=== PATIENT | female | born 1960 | race African-American/Black ===

== ENCOUNTER 2022-02-26 12:31 | Emergency (ER) | payer OTHER ==
[~2022-02-26] VITALS: Ht 167.6 cm; Wt 105.7 kg
[~2022-02-26 12:31] MED LIST: AMLO10TA88 PO; CEPH-588 PO; CLON1TAB1 PO; DULO30EC PO; ENAL-197 PO; INSU100V6 SQ; INSU300S SUBQ; METF-346 PO; ROSU10TA34 PO; SEMA0.25 SUBQ; SODI100076 PO; [UNRECOGNIZED DRUG - CODE] PO
[2022-02-26 12:41] VITALS: BP 135/67
[2022-02-26 13:31] LABS: BASOPHILS % (AUTO) 1.1 % (0.0-2.0); EOSINOPHILS # (AUTO) 0.1 K/uL (0-0.4); EOSINOPHILS % (AUTO) 3.5 % (0.0-4.0); HEMATOCRIT 33.2 % (36-48); HEMOGLOBIN 11.1 g/dL (12.0-16.0); LYMPHOCYTES # (AUTO) 1.2 K/uL (2.5-16.5); LYMPHOCYTES % (AUTO) 29.6 % (20.5-51.1); MEAN CORPUSCULAR HEMOGLOBIN 27 pg (27-31); MEAN CORPUSCULAR HGB CONC 34 g/dL (33-37); MEAN CORPUSCULAR VOLUME 79.7 fL (80-94); MONOCYTES # (AUTO) 0.3 K/uL (0.8-1.0); MONOCYTES % (AUTO) 7.2 % (1.7-9.3); NEUTROPHILS # (AUTO) 2.3 K/uL (1.8-7.7); NEUTROPHILS % (AUTO) 58.6 % (42.2-75.2); PLATELET COUNT (AUTO) 555 K/uL (140-450); RED BLOOD CELL COUNT(AUTO) 4.16 MIL/uL (4.20-5.40); RED CELL DISTRIBUTION WIDTH 13.2 % (11.6-13.7); WHITE BLOOD COUNT (AUTO) 3.9 K/uL (4.8-10.8)
[2022-02-26 13:48] LABS: ALBUMIN 3.2 g/dL (3.4-5.0); ANION GAP 10.8 (8-16); ASPARTATE AMINOTRANSFERASE 14 U/L (15-37); CARBON DIOXIDE 29.9 mmol/L (21-32); CHLORIDE 96 mmol/L (98-107); GFR ARICAN-AMERICAN 72 mL/min (>90); GLUCOSE 155 mg/dL (74-106); POTASSIUM 4.7 mmol/L (3.5-5.1); SODIUM SERUM 132 mmol/L (136-145); TOTAL BILIRUBIN 0.4 mg/dL (0.0-1.0); UREA NITROGEN, BLOOD 10 mg/dL (7-18)
[2022-02-26] MEDS ORDERED: ONDANSETRON 4 MG/2 ML VIAL IVP ONE (14:10)
[2022-02-26] MEDS ORDERED: NACL 0.9% 1,000 ML IV ONE (14:10)
[2022-02-26 14:37] LABS: APPEARANCE,URINE CLEAR (CLEAR); BILIRUBIN,URINE NEGATIVE (NEGATIVE); BLOOD, URINE NEGATIVE (NEGATIVE); LEUKOCYTE ESTERASE ,URINE NEGATIVE (NEGATIVE); NITRITE, URINE NEGATIVE (NEGATIVE); PH,URINE 5.5 (5.0-9.0); UGLUCOSE NEGATIVE (NEGATIVE)
[2022-02-26 14:38] LABS: COLOR,URINE STRAW (YELLOW)
[2022-02-26 16:50] VITALS: BP 121/58
== END 2022-02-26 16:50 | disposition home or self-care (01) ==
LOC: MED 12:31
DX: D72.819 Decreased white blood cell count, unspecified (principal); D64.9 Anemia, unspecified; R53.1 Weakness; Z20.822 Contact with and (suspected) exposure to COVID-19; R09.81 Nasal congestion; R05.9 Cough, unspecified; E11.9 Type 2 diabetes mellitus without complications; I10 Essential (primary) hypertension; Z98.890 Other specified postprocedural states; Z79.899 Other long term (current) drug therapy; Z79.2 Long term (current) use of antibiotics; Z79.4 Long term (current) use of insulin; Z88.2 Allergy status to sulfonamides; Z88.8 Allergy status to other drugs, medicaments and biological substances; Z91.040 Latex allergy status; Z88.1 Allergy status to other antibiotic agents
CPT/HCPCS: 36415; 71045; 80053; 81003; 84484; 85025; 87086; 87426; 93005; 96361; 96374; 99285; J2405; J7030; Q0092

== ENCOUNTER 2022-03-06 20:41 | Emergency (ER) | payer OTHER ==
[~2022-03-06] VITALS: Ht 167.6 cm; Wt 107.0 kg
[2022-03-06 21:08] VITALS: BP 123/53
[2022-03-06 21:30] LABS: BASOPHILS % (AUTO) 0.1 % (0.0-2.0); EOSINOPHILS # (AUTO) 0.2 K/uL (0-0.4); EOSINOPHILS % (AUTO) 3.5 % (0.0-4.0); HEMATOCRIT 35.1 % (36-48); LYMPHOCYTES # (AUTO) 2.3 K/uL (2.5-16.5); LYMPHOCYTES % (AUTO) 48.7 % (20.5-51.1); MEAN CORPUSCULAR HEMOGLOBIN 27 pg (27-31); MEAN CORPUSCULAR HGB CONC 34 g/dL (33-37); MEAN CORPUSCULAR VOLUME 79.7 fL (80-94); MONOCYTES # (AUTO) 0.5 K/uL (0.8-1.0); NEUTROPHILS # (AUTO) 1.8 K/uL (1.8-7.7); NEUTROPHILS % (AUTO) 37.7 % (42.2-75.2); PLATELET COUNT (AUTO) 556 K/uL (140-450); RED BLOOD CELL COUNT(AUTO) 4.41 MIL/uL (4.20-5.40); RED CELL DISTRIBUTION WIDTH 12.8 % (11.6-13.7); WHITE BLOOD COUNT (AUTO) 4.8 K/uL (4.8-10.8)
[2022-03-06 21:32] LABS: APPEARANCE,URINE CLEAR (CLEAR); BILIRUBIN,URINE NEGATIVE (NEGATIVE); BLOOD, URINE NEGATIVE (NEGATIVE); COLOR,URINE YELLOW (YELLOW); LEUKOCYTE ESTERASE ,URINE NEGATIVE (NEGATIVE); NITRITE, URINE NEGATIVE (NEGATIVE); UGLUCOSE NEGATIVE (NEGATIVE)
[2022-03-06 22:17] LABS: ALBUMIN 3.8 g/dL (3.4-5.0); ANION GAP 10.9 (8-16); CARBON DIOXIDE 30.1 mmol/L (21-32); TOTAL BILIRUBIN 0.2 mg/dL (0.0-1.0)
[2022-03-06] MEDS ORDERED: MECL-303 PO (23:55)
[2022-03-07 00:17] VITALS: BP 108/51
== END 2022-03-07 00:17 | disposition home or self-care (01) ==
LOC: MED 20:41
DX: R42 Dizziness and giddiness (principal); Z20.822 Contact with and (suspected) exposure to COVID-19; E11.9 Type 2 diabetes mellitus without complications; I10 Essential (primary) hypertension; Z98.890 Other specified postprocedural states; Z79.899 Other long term (current) drug therapy; Z79.2 Long term (current) use of antibiotics; Z79.4 Long term (current) use of insulin; Z88.2 Allergy status to sulfonamides; Z88.8 Allergy status to other drugs, medicaments and biological substances; Z91.040 Latex allergy status; Z88.1 Allergy status to other antibiotic agents
CPT/HCPCS: 36415; 71045; 80053; 81003; 83605; 83880; 84484; 85025; 87040; 87086; 87426; 93005; 99285; Q0092

== ENCOUNTER 2022-03-14 19:50 | Emergency (ER) | payer OTHER ==
[~2022-03-14] VITALS: Ht 167.6 cm; Wt 103.9 kg
[~2022-03-14 19:50] MED LIST changes: +MECL-303 PO
[2022-03-14 21:04] VITALS: BP 140/79
--- NOTE | 2022-03-14 21:09 | NUR ---
TO LOBBY FOLLOWING TRIAGE
--- NOTE | 2022-03-14 23:30 | NUR ---
CALLED PT FOR MD PENA, NO ANSWER
[2022-03-14] MEDS ORDERED: PROCHLORPERAZINE 10 MG/2 ML VIAL IVP ONE (23:35)
[2022-03-14] MEDS ORDERED: MORPHINE SULFATE 2 MG/ML SYR IVP ONE (23:35)
[2022-03-14] MEDS ORDERED: NACL 0.9% 1,000 ML IV ONE (23:35)
--- NOTE | 2022-03-14 23:54 | NUR ---
CALLED FOR MD PENA. PT WAS ALSO CALLED EARLIER FOR CT, NO ANSWER. PT LWBS
== END 2022-03-14 23:54 | disposition left against medical advice (07) ==
LOC: MED 19:50
DX: R51.9 Headache, unspecified (principal); I10 Essential (primary) hypertension; E11.9 Type 2 diabetes mellitus without complications; Z79.4 Long term (current) use of insulin; Z79.899 Other long term (current) drug therapy; Z88.2 Allergy status to sulfonamides; Z88.8 Allergy status to other drugs, medicaments and biological substances; Z91.040 Latex allergy status; Z53.21 Procedure and treatment not carried out due to patient leaving prior to being seen by health care provider

== ENCOUNTER 2022-10-03 10:47 | Emergency (ER) | payer OTHER ==
[~2022-10-03] VITALS: Ht 167.6 cm; Wt 108.4 kg
[2022-10-03 10:55] VITALS: BP 122/67
--- NOTE | 2022-10-03 11:00 | NUR ---
62/f walked in c/o dizziness x 1 wk. denies nvd. denies loc or fall. vss, aao4, ambulatory. PMH: HX CRANIOTOMY 2022, DM, HTN, HDL, GASTROPARESIS
[2022-10-03] MEDS ORDERED: NACL 0.9% 1,000 ML IV ONE (12:10)
[2022-10-03 12:45] LABS: BASOPHILS % (AUTO) 0.8 % (0.0-2.0); EOSINOPHILS # (AUTO) 0.2 K/uL (0-0.4); EOSINOPHILS % (AUTO) 3.4 % (0.0-4.0); HEMOGLOBIN 12.4 g/dL (12.0-16.0); LYMPHOCYTES % (AUTO) 34.9 % (20.5-51.1); MEAN CORPUSCULAR HEMOGLOBIN 27 pg (27-31); MEAN CORPUSCULAR HGB CONC 34 g/dL (33-37); MEAN CORPUSCULAR VOLUME 81.6 fL (80-94); MONOCYTES # (AUTO) 0.5 K/uL (0.8-1.0); MONOCYTES % (AUTO) 9.3 % (1.7-9.3); NEUTROPHILS # (AUTO) 2.9 K/uL (1.8-7.7); NEUTROPHILS % (AUTO) 51.6 % (42.2-75.2); PLATELET COUNT (AUTO) 426 K/uL (140-450); RED BLOOD CELL COUNT(AUTO) 4.53 MIL/uL (4.20-5.40); RED CELL DISTRIBUTION WIDTH 12.3 % (11.6-13.7); WHITE BLOOD COUNT (AUTO) 5.6 K/uL (4.8-10.8)
[2022-10-03 13:58] LABS: ALBUMIN 3.8 g/dL (3.4-5.0); ANION GAP 12.9 (8-16); ASPARTATE AMINOTRANSFERASE 18 U/L (15-37); CARBON DIOXIDE 28.8 mmol/L (21-32); CHLORIDE 99 mmol/L (98-107); CREATININE 1.1 mg/dL (0.6-1.3); GFR ARICAN-AMERICAN 64 mL/min (>90); GLUCOSE 82 mg/dL (74-106); MAGNESIUM 1.7 mg/dL (1.8-2.4); POTASSIUM 3.7 mmol/L (3.5-5.1); SODIUM SERUM 137 mmol/L (136-145); TOTAL BILIRUBIN 0.2 mg/dL (0.0-1.0); UREA NITROGEN, BLOOD 18 mg/dL (7-18)
[2022-10-03 14:02] LABS: APPEARANCE,URINE CLEAR (CLEAR); BILIRUBIN,URINE NEGATIVE (NEGATIVE); BLOOD, URINE NEGATIVE (NEGATIVE); COLOR,URINE YELLOW (YELLOW); LEUKOCYTE ESTERASE ,URINE NEGATIVE (NEGATIVE); NITRITE, URINE NEGATIVE (NEGATIVE); UGLUCOSE 2+ (NEGATIVE)
[2022-10-03] MEDS ORDERED: MAGNESIUM OXIDE 400 MG TAB PO ONE (14:20)
[2022-10-03 14:30] VITALS: BP 119/75
== END 2022-10-03 14:30 | disposition home or self-care (01) ==
LOC: MED 10:47
DX: R42 Dizziness and giddiness (principal); E11.9 Type 2 diabetes mellitus without complications; I10 Essential (primary) hypertension; Z88.2 Allergy status to sulfonamides; Z88.8 Allergy status to other drugs, medicaments and biological substances; Z79.4 Long term (current) use of insulin; Z79.899 Other long term (current) drug therapy; Z91.040 Latex allergy status; Z98.890 Other specified postprocedural states
CPT/HCPCS: 36415; 80053; 81003; 83735; 84484; 85025; 93005; 96360; 99284; J7030

== ENCOUNTER 2022-12-10 02:13 | Emergency (ER) | payer OTHER ==
[~2022-12-10] VITALS: Ht 167.6 cm; Wt 107.5 kg
[2022-12-10 02:21] VITALS: BP 142/71
--- NOTE | 2022-12-10 02:46 | NUR ---
PT TO BED #7
--- NOTE | 2022-12-10 02:48 | NUR ---
RECEIVED IN BED 7 WITH C/O COUGH AND CONGESTION, DENIES ANY N/V/D, NO FEVER OR CHILLS.
--- NOTE | 2022-12-10 03:24 | NUR ---
DR DUEÑAS AT BEDSIDE FOR EXAM
[2022-12-10] MEDS ORDERED: ALBUTEROL SULFATE/IPRATROPIU 3 ML SOL IH ONE ×2 (03:40→03:46)
[2022-12-10] MEDS ORDERED: predniSONE 20 MG TAB PO ONE (03:40)
[2022-12-10] MEDS ORDERED: ALBUTEROL HFA MDI 90 MCG/ACTUATION 8 GM INH ONE (03:40)
[2022-12-10] MEDS ORDERED: predniSONE 20 MG TAB ONE (03:42)
--- NOTE | 2022-12-10 03:47 | NUR ---
RESPIRATORY AT BEDSIDE FOR MED NEB TX
[2022-12-10] MEDS ORDERED: PRED20TA5 PO (05:12)
[2022-12-10] MEDS ORDERED: ALBU0.0912 IH (05:12)
[2022-12-10] MEDS ORDERED: ROBAC PO (05:12)
[2022-12-10 05:45] VITALS: BP 142/71
--- NOTE | 2022-12-10 05:45 | NUR ---
Patient discharged with v/s stable. Written and verbal after care instructions given and explained. Patient alert, oriented and verbalized understanding of instructions. Ambulatory with steady gait. All questions addressed prior to discharge. ID band removed. Patient advised to follow up with PMD. Rx of PROVENTIL HFA, PREDNISONE, GUAIFENESIN-CODEINE SYRUP given. Patient educated on indication of medication including possible reaction and side effects. Opportunity to ask questions provided and answered.
== END 2022-12-10 05:50 | disposition home or self-care (01) ==
LOC: MED 02:13
DX: J20.9 Acute bronchitis, unspecified (principal); Z20.822 Contact with and (suspected) exposure to COVID-19; I10 Essential (primary) hypertension; E11.9 Type 2 diabetes mellitus without complications; Z88.2 Allergy status to sulfonamides; Z91.040 Latex allergy status; Z88.8 Allergy status to other drugs, medicaments and biological substances; Z79.899 Other long term (current) drug therapy; Z79.4 Long term (current) use of insulin; Z98.890 Other specified postprocedural states
CPT/HCPCS: 71045; 87420; 87426; 87804; 94640; 99284; J7512; Q0092

== ENCOUNTER 2022-12-12 11:31 | Inpatient (IN) | payer OTHER ==
[~2022-12-12] VITALS: Ht 167.6 cm; Wt 108.9 kg
[~2022-12-12 11:31] MED LIST changes: +ALBU0.0912 IH; +PRED20TA5 PO; +ROBAC PO
[2022-12-12 11:56] VITALS: BP 143/109; PULSE 97; RESP 16; TEMP 98.4; O2SAT 98
--- NOTE | 2022-12-12 12:24 | NUR ---
PT W/C ASSISTED TO BED 1
[2022-12-12 12:30] VITALS: O2SAT 98
--- NOTE | 2022-12-12 12:30 | NUR ---
62YO FEMALE PT BIB FRIEND C/O MEDICATION INTERACTION. PT GIVEN RX TYLENOL W/CODEINE FOR RECENT DX BRONCHITIS AND STATES "FEELING HEAD FUZZY" AFTER TAKING RX. DENIES HALLUCINATIONS, CHEST PAIN, SOB, FEVER, CHILLS OR RASH.PT AAOX4, SPEAKING IN CLEAR FULL SENTANCES. RESPIRATIONS EVEN AND UNLABORED. W/C ASSISTED TO ROOM. ON BEVERAGE SALES CONSULTANT. HX: HTN, HLD, ASTHMA, SPINAL STENOSIS, SCIATICA ALLERGIES: SOMMA, SULFA, AVELOX, LATEX
--- NOTE | 2022-12-12 12:34 | NUR ---
MD ALONZO AT BEDSIDE FOR EVALUATION
[2022-12-12] MEDS ORDERED: LORazepam 1 MG TAB PO ONE (12:45)
[2022-12-12 13:19] LABS: BASOPHILS % (AUTO) 0.6 % (0.0-2.0); EOSINOPHILS # (AUTO) 0.1 K/uL (0-0.4); EOSINOPHILS % (AUTO) 1.8 % (0.0-4.0); HEMATOCRIT 36.2 % (36-48); HEMOGLOBIN 12.2 g/dL (12.0-16.0); LYMPHOCYTES # (AUTO) 2.2 K/uL (2.5-16.5); LYMPHOCYTES % (AUTO) 32.4 % (20.5-51.1); MEAN CORPUSCULAR HEMOGLOBIN 27 pg (27-31); MEAN CORPUSCULAR HGB CONC 34 g/dL (33-37); MEAN CORPUSCULAR VOLUME 80.4 fL (80-94); MONOCYTES # (AUTO) 0.5 K/uL (0.8-1.0); MONOCYTES % (AUTO) 7.4 % (1.7-9.3); NEUTROPHILS # (AUTO) 3.9 K/uL (1.8-7.7); NEUTROPHILS % (AUTO) 57.8 % (42.2-75.2); PLATELET COUNT (AUTO) 411 K/uL (140-450); RED BLOOD CELL COUNT(AUTO) 4.51 MIL/uL (4.20-5.40); RED CELL DISTRIBUTION WIDTH 12.6 % (11.6-13.7); WHITE BLOOD COUNT (AUTO) 6.7 K/uL (4.8-10.8)
[2022-12-12 13:35] LABS: ALBUMIN 3.6 g/dL (3.4-5.0); ANION GAP 13.5 (8-16); ASPARTATE AMINOTRANSFERASE 17 U/L (15-37); CARBON DIOXIDE 26.7 mmol/L (21-32); CHLORIDE 89 mmol/L (98-107); CREATININE 1.1 mg/dL (0.6-1.3); GFR ARICAN-AMERICAN 64 mL/min (>90); GLUCOSE 236 mg/dL (74-106); POTASSIUM 4.2 mmol/L (3.5-5.1); SODIUM SERUM 125 mmol/L (136-145); TOTAL BILIRUBIN 0.4 mg/dL (0.0-1.0); UREA NITROGEN, BLOOD 11 mg/dL (7-18)
[2022-12-12] MEDS ORDERED: LORazepam 1 MG TAB ONE (13:47)
[2022-12-12] MEDS ORDERED: NACL 0.9% 1,000 ML IV ONE (13:50)
--- NOTE | 2022-12-12 15:00 | NUR ---
The patient's care was reviewed and supervised by Dix 04 ED, RN.
[2022-12-12] MEDS ORDERED: MAGNESIUM OXIDE 400 MG TAB PO PRN (15:05)
[2022-12-12] MEDS ORDERED: ONDANSETRON 4 MG/2 ML VIAL IVP PRN (15:05)
[2022-12-12] MEDS ORDERED: HYDROcodone/APAP 5/325 MG 1 TAB TAB PO PRN (15:05)
[2022-12-12] MEDS ORDERED: KCL 20 MEQ IN 100 mL PREMIX 200 ML IV PRN (15:05)
[2022-12-12] MEDS ORDERED: ACETAMINOPHEN 325 MG TAB PO PRN (15:05)
[2022-12-12] MEDS ORDERED: MAG SULF 2000 MG/WATER PREMIX 50 ML IV PRN (15:05)
[2022-12-12] MEDS ORDERED: POTASSIUM CHLORIDE 10 MEQ TABER PO PRN (15:05)
[2022-12-12] MEDS ORDERED: MORPHINE SULFATE 2 MG/ML SYR IVP PRN (15:05)
[2022-12-12] MEDS ORDERED: NACL 0.9% 1,000 ML IV SCH (15:05)
[2022-12-12 16:35] VITALS: O2SAT 100
--- NOTE | 2022-12-12 17:48 | NUR ---
pt provided w/ dinner. pt awake, repositioned and eating in bed
[2022-12-12 18:14] LABS: CARBON DIOXIDE 29.1 mmol/L (21-32); POTASSIUM 4.1 mmol/L (3.5-5.1)
--- NOTE | 2022-12-12 19:18 | NUR ---
REPORT GIVEN TO ROSY FREY. TRANSFER OF CARE AT THIS TIME
--- NOTE | 2022-12-12 19:31 | NUR ---
PATIENT RESTING IN BED, A/OX4, CHEST RISE AND FALL SYMMETRICAL, NO C/O PAIN OR S/S OF DISTRESS, ON MONITOR.
--- NOTE | 2022-12-12 21:00 | NUR ---
PATIENT RESTING IN BED, A/OX4, CHEST RISE AND FALL SYMMETRICAL, NO C/O PAIN OR S/S OF DISTRESS, ON MONITOR.
[2022-12-12 21:20] LABS: ANION GAP 10.7 (8-16); CARBON DIOXIDE 27.4 mmol/L (21-32); CREATININE 0.9 mg/dL (0.6-1.3); POTASSIUM 4.1 mmol/L (3.5-5.1)
[2022-12-12] MEDS ORDERED: MECLIZINE 25 MG TAB PO PRN (23:00)
[2022-12-12] MEDS ORDERED: ALBUTEROL HFA MDI 90 MCG/ACTUATION 8 GM INH PRN (23:00)
[2022-12-12] MEDS ORDERED: DEXTROSE 50% 50 ML SYR IVP PRN (23:00)
--- NOTE | 2022-12-12 23:20 | NUR ---
PATIENT RESTING IN BED, A/OX4, CHEST RISE AND FALL SYMMETRICAL, NO C/O PAIN OR S/S OF DISTRESS, ON MONITOR.
[2022-12-13] MEDS: BLOOD GLUCOSE MONITORING 1 DEV DEV FS SCH ×2 (00:12→11:40)
[2022-12-13] MEDS: INSULIN LISPRO SLIDING SCALE 100 UNITS/ML VIAL SUBQ PRN ×2 (00:16→11:43)
--- NOTE | 2022-12-13 01:20 | NUR ---
PATIENT RESTING IN BED, A/OX4, CHEST RISE AND FALL SYMMETRICAL, NO C/O PAIN OR S/S OF DISTRESS, ON MONITOR.
--- NOTE | 2022-12-13 04:00 | NUR ---
PATIENT RESTING IN BED, A/OX4, CHEST RISE AND FALL SYMMETRICAL, NO C/O PAIN OR S/S OF DISTRESS, ON MONITOR.
[2022-12-13] MEDS: clonazePAM 0.5 MG TAB PO PRN ×2 (05:34→05:36)
[2022-12-13] MEDS ORDERED: ALBUTEROL 0.083% 2.5 MG/3 ML NEBU INH PRN (07:10)
--- NOTE | 2022-12-13 07:24 | NUR ---
Pt report given to NINO. Transfer of care at this time.
[2022-12-13 07:47] LABS: BASOPHILS # (AUTO) 0.1 K/uL (0.00-0.22); BASOPHILS % (AUTO) 1.3 % (0.0-2.0); EOSINOPHILS # (AUTO) 0.1 K/uL (0-0.4); HEMATOCRIT 37.9 % (36-48); HEMOGLOBIN 12.7 g/dL (12.0-16.0); LYMPHOCYTES # (AUTO) 1.8 K/uL (2.5-16.5); LYMPHOCYTES % (AUTO) 30.8 % (20.5-51.1); MEAN CORPUSCULAR HEMOGLOBIN 27 pg (27-31); MEAN CORPUSCULAR HGB CONC 34 g/dL (33-37); MEAN CORPUSCULAR VOLUME 81.3 fL (80-94); MONOCYTES # (AUTO) 0.7 K/uL (0.8-1.0); MONOCYTES % (AUTO) 11.1 % (1.7-9.3); NEUTROPHILS # (AUTO) 3.3 K/uL (1.8-7.7); NEUTROPHILS % (AUTO) 54.8 % (42.2-75.2); PLATELET COUNT (AUTO) 421 K/uL (140-450); RED BLOOD CELL COUNT(AUTO) 4.66 MIL/uL (4.20-5.40); RED CELL DISTRIBUTION WIDTH 12.5 % (11.6-13.7)
[2022-12-13 07:59] LABS: CHOL/HDL RATIO 1.9 (1-4.5)
--- NOTE | 2022-12-13 08:00 | NUR ---
Patient will be admitted to care of GENET PAULSON. Admitted to TELEMETRY. Will go to room 107A. Belongings list completed. Report to LALITO FREY.
[2022-12-13 08:03] LABS: ALBUMIN 3.4 g/dL (3.4-5.0); ANION GAP 10.3 (8-16); CARBON DIOXIDE 27.6 mmol/L (21-32); CREATININE 0.9 mg/dL (0.6-1.3); MAGNESIUM 1.9 mg/dL (1.8-2.4); POTASSIUM 3.9 mmol/L (3.5-5.1); TOTAL BILIRUBIN 0.4 mg/dL (0.0-1.0)
[2022-12-13 08:05] VITALS: BP 125/63; PULSE 87; PULSE 99; RESP 18; TEMP 96.6; O2SAT 95
[2022-12-13 08:10] VITALS: PULSE 99; RESP 18; O2SAT 96
--- NOTE | 2022-12-13 08:10 | NUR ---
RECEIVED REPORT FROM ER NURSE FOR CONTINUITY OF CARE. PT STABLE UPON TRANSFER WITH NO SIGNS OF DISTRESS. PT IS A&OX4, ROOM AIR, CCHO DIET, SKIN INTACT, AND AMBULATES WITH ASSIST. PT HAS A 20G IV IN HER L HAND THAT IS PATENT AND SALINE LOCKED. ALL SAFETY MEASURERS IN WITH IN REACH INCLUDING CALL LIGHT WITH REACH. WILL CONTINUE MONITORING.
--- NOTE | 2022-12-13 08:46 | NUR ---
PATIENT HAS BEEN SCREENED AND CATEGORIZED LOW NUTRITION RISK. PATIENT WILL BE SEEN WITHIN 7 DAYS OF ADMISSION. 12/19/[address]
[2022-12-13] MEDS ORDERED: ENOXAPARIN 40 MG/0.4 ML SYR SUBQ SCH (09:00)
[2022-12-13] MEDS ORDERED: amLODIPine 5 MG TAB PO SCH (09:00)
[2022-12-13] MEDS ORDERED: ATORVASTATIN 20 MG TAB PO SCH (09:00)
[2022-12-13] MEDS ORDERED: ROSUVASTATIN CALCIUM 5 MG PO SCH (09:00)
[2022-12-13] MEDS ORDERED: ENALAPRIL 10 MG TAB PO SCH (09:00)
[2022-12-13 12:00] VITALS: BP 122/68; PULSE 100; PULSE 95; RESP 18; TEMP 97.1; O2SAT 98
[2022-12-13 15:00] VITALS: BP 122/68; PULSE 100; RESP 18; TEMP 97.1
--- NOTE | 2022-12-14 13:51 | NUR ---
CALLED DR JAYY MARI'S OFFICE LOCATED AT [address] [address]. SPOKE WITH ELVIS WHO WAS ABLE HELP ME SCHEDULE A FOLLOW UP APPOINTMENT FOR 12/22/2022 AT 0900. CALLED PATIENT TO INFORM HER OF THE ABOVE INFORMATION.
== END 2022-12-13 15:30 | disposition home or self-care (01) | DRG 640 ==
LOC: MED 11:31 → MTU 15:09
PROVIDERS: ADMIT Internal Medicine; ATTEND Internal Medicine
DX: E87.1 Hypo-osmolality and hyponatremia (principal); G93.41 Metabolic encephalopathy; N17.9 Acute kidney failure, unspecified; T43.225A Adverse effect of selective serotonin reuptake inhibitors, initial encounter; I10 Essential (primary) hypertension; E78.5 Hyperlipidemia, unspecified; J06.9 Acute upper respiratory infection, unspecified; F41.9 Anxiety disorder, unspecified; Z20.822 Contact with and (suspected) exposure to COVID-19; E11.21 Type 2 diabetes mellitus with diabetic nephropathy; E86.0 Dehydration; Z88.8 Allergy status to other drugs, medicaments and biological substances; Z88.1 Allergy status to other antibiotic agents; Z88.2 Allergy status to sulfonamides; Z91.040 Latex allergy status; Z79.899 Other long term (current) drug therapy; Z79.4 Long term (current) use of insulin; Z85.841 Personal history of malignant neoplasm of brain; Y92.89 Other specified places as the place of occurrence of the external cause
CPT/HCPCS: 36415; 80048; 80053; 82948; 83036; 83735; 84484; 85025; 87081; 96360; 97116; 99285; J1650; J1815

== ENCOUNTER 2023-03-19 14:06 | Emergency (ER) | payer OTHER ==
[~2023-03-19] VITALS: Ht 167.6 cm; Wt 81.6 kg
[~2023-03-19 14:06] MED LIST changes: -CEPH-588 PO; +INSU100V11 SQ; -INSU100V6 SQ; -ROBAC PO; -SEMA0.25 SUBQ; -SODI100076 PO
[2023-03-19 14:37] VITALS: BP 136/66; PULSE 84; RESP 18; TEMP 97.6; O2SAT 98
[2023-03-19] MEDS ORDERED: NACL 0.9% 1,000 ML IV ONE (14:55)
[2023-03-19] MEDS ORDERED: ONDANSETRON 4 MG/2 ML VIAL IVP ONE (14:55)
[2023-03-19 15:07] LABS: BASOPHILS # (AUTO) 0.1 K/uL (0.00-0.22); BASOPHILS % (AUTO) 1.1 % (0.0-2.0); EOSINOPHILS # (AUTO) 0.1 K/uL (0-0.4); EOSINOPHILS % (AUTO) 1.8 % (0.0-4.0); HEMATOCRIT 36.6 % (36-48); HEMOGLOBIN 12.3 g/dL (12.0-16.0); LYMPHOCYTES # (AUTO) 1.5 K/uL (2.5-16.5); MEAN CORPUSCULAR HEMOGLOBIN 28 pg (27-31); MEAN CORPUSCULAR HGB CONC 34 g/dL (33-37); MONOCYTES # (AUTO) 0.4 K/uL (0.8-1.0); MONOCYTES % (AUTO) 6.7 % (1.7-9.3); NEUTROPHILS # (AUTO) 4.3 K/uL (1.8-7.7); NEUTROPHILS % (AUTO) 66.4 % (42.2-75.2); PLATELET COUNT (AUTO) 388 K/uL (140-450); RED BLOOD CELL COUNT(AUTO) 4.46 MIL/uL (4.20-5.40); RED CELL DISTRIBUTION WIDTH 12.6 % (11.6-13.7); WHITE BLOOD COUNT (AUTO) 6.5 K/uL (4.8-10.8)
[2023-03-19 15:14] LABS: APPEARANCE,URINE CLEAR (CLEAR); BILIRUBIN,URINE NEGATIVE (NEGATIVE); BLOOD, URINE NEGATIVE (NEGATIVE); COLOR,URINE YELLOW (YELLOW); LEUKOCYTE ESTERASE ,URINE NEGATIVE (NEGATIVE); NITRITE, URINE NEGATIVE (NEGATIVE); PROTEIN,URINE NEGATIVE (NEGATIVE); UGLUCOSE 2+ (NEGATIVE); UROBILINOGEN,URINE 0.2 EU/dL (0.2 - 1)
[2023-03-19 15:32] LABS: ALANINE AMINOTRANSFERASE 24 U/L (12-78); ALBUMIN 3.5 g/dL (3.4-5.0); ALKALINE PHOSPHATASE 110 U/L (50-136); ANION GAP 9.9 (8-16); ASPARTATE AMINOTRANSFERASE 15 U/L (15-37); CALCIUM 9.3 mg/dL (8.5-10.1); CARBON DIOXIDE 28.2 mmol/L (21-32); CHLORIDE 96 mmol/L (98-107); CREATININE 1.1 mg/dL (0.6-1.3); GFR ARICAN-AMERICAN 64 mL/min (>90); GFR NON ARICAN-AMERICAN 53 mL/min (>90); GLUCOSE 250 mg/dL (74-106); POTASSIUM 4.1 mmol/L (3.5-5.1); SODIUM SERUM 130 mmol/L (136-145); TOTAL BILIRUBIN 0.3 mg/dL (0.0-1.0); TOTAL PROTEIN, SERUM 7.6 g/dL (6.4-8.2); UREA NITROGEN, BLOOD 14 mg/dL (7-18)
[2023-03-19] MEDS ORDERED: MECL-303 PO (16:00)
[2023-03-19 16:41] VITALS: BP 115/62; PULSE 74; RESP 16; TEMP 98.4; O2SAT 99
== END 2023-03-19 16:41 | disposition home or self-care (01) ==
LOC: MED 14:06
DX: R42 Dizziness and giddiness (principal); J45.909 Unspecified asthma, uncomplicated; E11.9 Type 2 diabetes mellitus without complications; I10 Essential (primary) hypertension; Z88.1 Allergy status to other antibiotic agents; Z88.2 Allergy status to sulfonamides; Z88.8 Allergy status to other drugs, medicaments and biological substances; Z91.040 Latex allergy status; Z79.899 Other long term (current) drug therapy
CPT/HCPCS: 36415; 80053; 81003; 84484; 85025; 93005; 96361; 96374; 99284; J2405; J7030

== ENCOUNTER 2023-04-25 15:14 | Emergency (ER) | payer OTHER ==
[~2023-04-25] VITALS: Ht 167.6 cm; Wt 109.3 kg
[2023-04-25 15:36] VITALS: BP 132/69; PULSE 98; RESP 20; TEMP 97.8; O2SAT 98
[2023-04-25 17:04] LABS: BASOPHILS % (AUTO) 0.7 % (0.0-2.0); EOSINOPHILS # (AUTO) 0.1 K/uL (0-0.4); EOSINOPHILS % (AUTO) 2.6 % (0.0-4.0); HEMATOCRIT 37.6 % (36-48); HEMOGLOBIN 12.5 g/dL (12.0-16.0); LYMPHOCYTES # (AUTO) 1.3 K/uL (2.5-16.5); LYMPHOCYTES % (AUTO) 26.5 % (20.5-51.1); MEAN CORPUSCULAR HEMOGLOBIN 27 pg (27-31); MEAN CORPUSCULAR HGB CONC 33 g/dL (33-37); MEAN CORPUSCULAR VOLUME 82.5 fL (80-94); MONOCYTES # (AUTO) 0.3 K/uL (0.8-1.0); MONOCYTES % (AUTO) 6.9 % (1.7-9.3); NEUTROPHILS # (AUTO) 3.2 K/uL (1.8-7.7); NEUTROPHILS % (AUTO) 63.3 % (42.2-75.2); PLATELET COUNT (AUTO) 377 K/uL (140-450); RED BLOOD CELL COUNT(AUTO) 4.56 MIL/uL (4.20-5.40); RED CELL DISTRIBUTION WIDTH 12.7 % (11.6-13.7)
[2023-04-25 17:18] LABS: ALBUMIN 3.4 g/dL (3.4-5.0); ANION GAP 12.6 (8-16); CALCIUM 8.9 mg/dL (8.5-10.1); CARBON DIOXIDE 28.3 mmol/L (21-32); CREATININE 1.2 mg/dL (0.6-1.3); POTASSIUM 3.9 mmol/L (3.5-5.1); TOTAL BILIRUBIN 0.3 mg/dL (0.0-1.0); TOTAL PROTEIN, SERUM 7.6 g/dL (6.4-8.2)
[2023-04-25] MEDS ORDERED: NACL 0.9% 1,000 ML IV ONE (18:05)
[2023-04-25 18:27] LABS: APPEARANCE,URINE CLEAR (CLEAR); BILIRUBIN,URINE NEGATIVE (NEGATIVE); BLOOD, URINE NEGATIVE (NEGATIVE); COLOR,URINE YELLOW (YELLOW); LEUKOCYTE ESTERASE ,URINE NEGATIVE (NEGATIVE); NITRITE, URINE NEGATIVE (NEGATIVE); PH,URINE 5.5 (5.0-9.0); PROTEIN,URINE NEGATIVE (NEGATIVE); UGLUCOSE 3+ (NEGATIVE); UROBILINOGEN,URINE 0.2 EU/dL (0.2 - 1)
[2023-04-25 18:45] VITALS: TEMP 97.8
[2023-04-25] MEDS ORDERED: PROM118S5 PO (19:37)
[2023-04-25] MEDS ORDERED: DOXY-690 PO (19:37)
[2023-04-25 19:50] VITALS: BP 134/76; PULSE 88; RESP 16; O2SAT 93
== END 2023-04-25 19:50 | disposition home or self-care (01) ==
LOC: MED 15:14
DX: J45.909 Unspecified asthma, uncomplicated (principal); E11.65 Type 2 diabetes mellitus with hyperglycemia; I10 Essential (primary) hypertension; E78.00 Pure hypercholesterolemia, unspecified; Z98.890 Other specified postprocedural states; Z79.899 Other long term (current) drug therapy; Z79.2 Long term (current) use of antibiotics; Z79.4 Long term (current) use of insulin; Z88.2 Allergy status to sulfonamides; Z88.8 Allergy status to other drugs, medicaments and biological substances; Z91.040 Latex allergy status; Z88.1 Allergy status to other antibiotic agents
CPT/HCPCS: 36415; 71046; 80053; 81003; 83880; 84484; 85025; 96360; 99284; J7030

== ENCOUNTER 2023-08-07 12:22 | Emergency (ER) | payer OTHER ==
[~2023-08-07] VITALS: Ht 167.6 cm; Wt 106.6 kg
[~2023-08-07 12:22] MED LIST changes: +DOXY-690 PO; +PROM118S5 PO
[2023-08-07 12:29] VITALS: BP 144/74; PULSE 118; RESP 18; TEMP 98.1; O2SAT 100
[2023-08-07 14:14] LABS: APPEARANCE,URINE CLEAR (CLEAR); BILIRUBIN,URINE NEGATIVE (NEGATIVE); BLOOD, URINE NEGATIVE (NEGATIVE); COLOR,URINE YELLOW (YELLOW); LEUKOCYTE ESTERASE ,URINE NEGATIVE (NEGATIVE); NITRITE, URINE NEGATIVE (NEGATIVE); PROTEIN,URINE NEGATIVE (NEGATIVE); UGLUCOSE 3+ (NEGATIVE); UROBILINOGEN,URINE 0.2 EU/dL (0.2 - 1)
[2023-08-07] MEDS: KETOROLAC 30 MG/ML VIAL IM ONE (15:17)
[2023-08-07] MEDS ORDERED: HYDR-5191 PO (15:26)
[2023-08-07 15:48] VITALS: BP 135/78; PULSE 85; RESP 16; TEMP 98.1; O2SAT 100
== END 2023-08-07 15:48 | disposition home or self-care (01) ==
LOC: MED 12:22
DX: G89.29 Other chronic pain (principal); M54.50 Low back pain, unspecified; R35.0 Frequency of micturition; J45.909 Unspecified asthma, uncomplicated; E11.9 Type 2 diabetes mellitus without complications; I10 Essential (primary) hypertension; Z79.899 Other long term (current) drug therapy; Z79.4 Long term (current) use of insulin; Z88.2 Allergy status to sulfonamides; Z88.8 Allergy status to other drugs, medicaments and biological substances; Z91.040 Latex allergy status; Z88.1 Allergy status to other antibiotic agents
CPT/HCPCS: 81003; 96372; 99283; J1885

== ENCOUNTER 2023-09-23 10:57 | Emergency (ER) | payer OTHER ==
[~2023-09-23] VITALS: Ht 167.6 cm; Wt 109.3 kg
[~2023-09-23 10:57] MED LIST changes: +HYDR-5191 PO
[2023-09-23 11:50] VITALS: BP 142/71; PULSE 93; RESP 16; TEMP 98.1; O2SAT 100
[2023-09-23 12:03] VITALS: O2SAT 100
[2023-09-23] MEDS ORDERED: diphenhydrAMINE 50 MG/ML VIAL IVP ONE (14:20)
[2023-09-23] MEDS: ACETAMINOPHEN 325 MG TAB PO ONE (14:20)
[2023-09-23] MEDS ORDERED: METOCLOPRAMIDE 10 MG/2 ML INJ VIAL IVP ONE (14:20)
[2023-09-23] MEDS ORDERED: KETOROLAC 15 MG/ML VIAL ONE (14:48)
[2023-09-23 14:55] LABS: BASOPHILS % (AUTO) 0.8 % (0.0-2.0); EOSINOPHILS # (AUTO) 0.1 K/uL (0-0.4); EOSINOPHILS % (AUTO) 2.9 % (0.0-4.0); HEMATOCRIT 38.1 % (36-48); HEMOGLOBIN 12.9 g/dL (12.0-16.0); LYMPHOCYTES # (AUTO) 1.4 K/uL (2.5-16.5); LYMPHOCYTES % (AUTO) 32.9 % (20.5-51.1); MEAN CORPUSCULAR HEMOGLOBIN 27 pg (27-31); MEAN CORPUSCULAR HGB CONC 34 g/dL (33-37); MEAN CORPUSCULAR VOLUME 80.8 fL (80-94); MONOCYTES # (AUTO) 0.3 K/uL (0.8-1.0); MONOCYTES % (AUTO) 6.7 % (1.7-9.3); NEUTROPHILS # (AUTO) 2.5 K/uL (1.8-7.7); NEUTROPHILS % (AUTO) 56.7 % (42.2-75.2); PLATELET COUNT (AUTO) 403 K/uL (140-450); RED BLOOD CELL COUNT(AUTO) 4.72 MIL/uL (4.20-5.40); RED CELL DISTRIBUTION WIDTH 13.5 % (11.6-13.7); WHITE BLOOD COUNT (AUTO) 4.3 K/uL (4.8-10.8)
[2023-09-23 15:14] LABS: ANION GAP 10.3 (8-16); CALCIUM 9.3 mg/dL (8.5-10.1); CARBON DIOXIDE 30.1 mmol/L (21-32); CREATININE 1.1 mg/dL (0.6-1.3); POTASSIUM 4.4 mmol/L (3.5-5.1)
[2023-09-23] MEDS: NACL 0.9% 1,000 ML IV ONE (15:18)
[2023-09-23] MEDS: KETOROLAC 30 MG/ML VIAL IVP ONE (15:19)
[2023-09-23 15:26] LABS: ALBUMIN 3.6 g/dL (3.4-5.0); BILIRUBIN,DIRECT 0.1 mg/dL (0.0-0.3); TOTAL BILIRUBIN 0.4 mg/dL (0.0-1.0)
[2023-09-23 16:04] VITALS: BP 135/82; PULSE 88; RESP 16; TEMP 98.1; O2SAT 100
== END 2023-09-23 16:04 | disposition home or self-care (01) ==
LOC: MED 10:57
DX: R51.9 Headache, unspecified (principal); E11.65 Type 2 diabetes mellitus with hyperglycemia; J45.909 Unspecified asthma, uncomplicated; I10 Essential (primary) hypertension; Z88.2 Allergy status to sulfonamides; Z88.5 Allergy status to narcotic agent; Z88.8 Allergy status to other drugs, medicaments and biological substances; Z79.4 Long term (current) use of insulin; Z79.899 Other long term (current) drug therapy
CPT/HCPCS: 36415; 70450; 80048; 80076; 82948; 85025; 96360; 96372; 99285; J1885; J7030

== ENCOUNTER 2023-10-11 18:20 | Emergency (ER) | payer OTHER ==
[~2023-10-11] VITALS: Ht 167.6 cm; Wt 109.8 kg
[~2023-10-11 18:20] MED LIST changes: +HYDR-5071 PO; -HYDR-5191 PO
[2023-10-11 18:34] VITALS: BP 126/70; PULSE 112; RESP 18; TEMP 97.5; O2SAT 97
[2023-10-11] MEDS ORDERED: HYDR-5071 PO (22:50)
[2023-10-11 22:55] VITALS: BP 118/80; PULSE 90; RESP 18; TEMP 98; O2SAT 99
== END 2023-10-11 22:55 | disposition home or self-care (01) ==
LOC: MED 18:20
DX: S13.4XXA Sprain of ligaments of cervical spine, initial encounter (principal); D17.79 Benign lipomatous neoplasm of other sites; E11.9 Type 2 diabetes mellitus without complications; I10 Essential (primary) hypertension; E78.5 Hyperlipidemia, unspecified; Z79.899 Other long term (current) drug therapy; Z79.4 Long term (current) use of insulin; Z88.2 Allergy status to sulfonamides; Z88.8 Allergy status to other drugs, medicaments and biological substances; Z91.040 Latex allergy status; Z88.1 Allergy status to other antibiotic agents; X58.XXXA Exposure to other specified factors, initial encounter; Y92.89 Other specified places as the place of occurrence of the external cause; Y93.89 Activity, other specified; Y99.8 Other external cause status
CPT/HCPCS: 72050; 99283